=== PATIENT | female | born 1975 | race Caucasian/White ===

== ENCOUNTER 2016-04-12 08:25 | Inpatient (IN) | payer BC ==
[~2016-04-12] VITALS: Ht 149.9 cm; Wt 65.8 kg
[2016-05-04] VITALS (15 sets, daily range): BP systolic 91–119; BP diastolic 54–83; PULSE 76–101; RESP 12–20; TEMP 97.5–98.1; O2SAT 96–99
[2016-05-04] MEDS ORDERED: LACTATED RINGER'S 1000 ML IV ONE (06:15)
[2016-05-04] MEDS ORDERED: CITRIC ACID-SODIUM CITRATE LIQ 30 ML UDC PO SCH (06:15)
[2016-05-04] MEDS ORDERED: ceFAZolin 2 GM PREMIX 50 ML IV SCH (06:15)
[2016-05-04] MEDS ORDERED: PRENCAP10 PO (06:20)
[2016-05-04 06:45] LABS: AUTOMATED NEUTROPHIL # 5.5 TH/MM3 (1.8-7.7); BASOPHIL # 0.1 TH/MM3 (0-0.2); EOSINOPHIL # 0.2 TH/MM3 (0-0.4); EOSINOPHIL % 2.6 % (0.0-4.0); HEMATOCRIT 32.3 % (35.0-46.0); HEMO FLAGS DIFF FINAL; LYMPH % 18.9 % (9.0-44.0); LYMPHOCYTE # 1.5 TH/MM3 (1.0-4.8); MEAN CELL VOLUME 90.2 FL (80.0-100.0); MEAN CORPUSCULAR HEMOGLOBIN 29.8 PG (27.0-34.0); MEAN CORPUSCULAR HGB CONC 33.1 % (32.0-36.0); MONO % 7.6 % (0.0-8.0); NEUT % 69.9 % (16.0-70.0); PLATELET COUNT 158 TH/MM3 (150-450); RED BLOOD COUNT 3.58 MIL/MM3 (4.00-5.30); RED CELL DISTRIBUTION WIDTH 16.2 % (11.6-17.2); WHITE BLOOD COUNT 7.8 TH/MM3 (4.0-11.0)
[2016-05-04] MEDS: LACTATED RINGER'S 1000 ML IV SCH (07:14)
[2016-05-04] MEDS ORDERED: OXYTOCIN 10 UNIT/ML AMP ONE (07:16)
[2016-05-04] MEDS ORDERED: MORPHINE SULFATE PF 5 MG/10 ML VIAL ONE (07:16)
[2016-05-04] MEDS ORDERED: ONDANSETRON HCL 4 MG/2 ML VIAL ONE (07:16)
[2016-05-04 07:25] LABS: BACTERIA, URINE OCC /hpf; BLOOD, URINE NEG (NEG); GLUCOSE,URINE NEG (NEG); KETONE, URINE NEG (NEG); MUCUS URINE FEW /lpf (OCC); NITRITE,URINE NEG (NEG); SQUAMOUS EPITHELIAL CELL URINE 1 /hpf (0-5); URINE COLOR YELLOW (YELLW/STRAW)
[2016-05-04 07:26] LABS: COMMENT (UR) CULT NOT INDICATED; CULTURE IF INDICATED CULT NOT INDICATED
[2016-05-04] MEDS ORDERED: SODIUM CHLORIDE 0.9% FLUSH 5 ML FLUSH IV PRN (07:30)
[2016-05-04] MEDS ORDERED: MEASLES, MUMPS, RUBELLA VACCINE 0.5 ML VIAL SQ ONE (07:30)
[2016-05-04] MEDS ORDERED: KETOROLAC TROMETHAMINE 60 MG/2 ML (IM) VIAL IM PRN (07:30)
[2016-05-04] MEDS ORDERED: ZOLPIDEM TARTRATE 5 MG TAB PO PRN (07:30)
[2016-05-04] MEDS ORDERED: OXYTOCIN 30 UNITS-500ML PREMIX 500 ML IV ONE (07:30)
[2016-05-04] MEDS ORDERED: ONDANSETRON HCL 4 MG/2 ML VIAL IVP PRN (07:30)
[2016-05-04] MEDS ORDERED: DOCUSATE SODIUM 50 MG/SENNA 8.6 MG TAB PO PRN (07:30)
[2016-05-04] MEDS ORDERED: SIMETHICONE 80 MG CHEWABLE TAB PO PRN (07:30)
[2016-05-04] MEDS ORDERED: oxyCODONE/ACETAMINOPHEN 5 MG/325 MG TAB PO PRN ×2 (07:30)
[2016-05-04] MEDS ORDERED: ACETAMINOPHEN 1000 MG/100 ML VIAL IV ONE (07:56)
--- NOTE | 2016-05-04 08:47 | MH ---
cc: CURTIS LAZAR DATE OF ADMISSION: 05/04/2016 ADMISSION DIAGNOSES 1. Term . 2. Advanced maternal age. 3. Breech presentation. 4. Small planimetry with short stature and fibroids. HISTORY OF PRESENT ILLNESS A 40-year-old white female para 0 with an LMP of 08/04/2015, EDC of 05/10/2016. Her preop course has been benign. At term the baby was breech with small pelvis and she was admitted for primary . PAST MEDICAL HISTORY PREVIOUS SURGERY She had nose surgery at age 27. MEDICATIONS Vitamins. ALLERGIES None. TRANSFUSIONS None. SERIOUS MEDICAL ILLNESSES Had kidney stones in 2009, passed spontaneously. SOCIAL HISTORY She is , a teacher at [employer]. Alcohol, tobacco and drugs are none. FAMILY HISTORY Noncontributory. PHYSICAL EXAMINATION GENERAL: A well-nourished, well-developed white female. VITAL SIGNS: Stable. HEENT: Exam is normal. CHEST: Clear. HEART: Regular rate. BREASTS: Symmetrical. ABDOMEN: . EFW 3300 grams, breech presentation. Cervix is closed. Height is 4'11". ASSESSMENT As above. PLAN She is now admitted for primary . While in the office I explained the procedures, the risks, benefits and complications. The patient would like to proceed. MD TOO Richardson/SSB /6:45 AM /8:38 AM
[2016-05-04] MEDS ORDERED: LACTATED RINGER'S 1,000 ML BAG IV ONE (09:01)
[2016-05-04] MEDS ORDERED: ePHEDrine/NS 25 MG/5 ML SYR IV PUSH ONE (09:01)
[2016-05-04] MEDS ORDERED: LACTATED RINGER'S 1000 ML INJ 1,000 ML IV SCH (13:04)
[2016-05-04] MEDS: ACETAMINOPHEN 1000 MG/100 ML VIAL IV SCH ×3 (15:30→23:48)
[2016-05-04] MEDS ORDERED: OXYTOCIN 30 UNITS-500ML PREMIX 500 ML IV PRN (18:15)
[2016-05-04] MEDS: SODIUM CHLORIDE 0.9% FLUSH 5 ML FLUSH IV SCH (19:52)
[2016-05-04] MEDS: KETOROLAC TROMETHAMINE 30 MG/ML (IVP) VIAL IV PUSH PRN (21:30)
[2016-05-05] MEDS: LACTATED RINGER'S 1000 ML IV SCH ×2 (02:15→22:15)
[2016-05-05 03:50] VITALS: BP 105/64; PULSE 79; RESP 18; TEMP 97.9
[2016-05-05 07:44] VITALS: BP 111/69; PULSE 86; RESP 14; TEMP 98.2
--- NOTE | 2016-05-05 08:22 | MP ---
cc: CADYCURTIS DATE OF SURGERY 05/04/2016 PREOPERATIVE DIAGNOSIS 1. Term 2. Advanced maternal age 40 3. Breech presentation 4. Small pelvimetry POSTOPERATIVE DIAGNOSIS 1. Term 2. Advanced maternal age 40 3. Breech presentation 4. Small 5. Delivered PROCEDURE Primary low transverse section ANESTHESIA Spinal SURGEON Curtis Johnson MD [employer] Katie Branch ESTIMATED BLOOD LOSS For the procedure is about 600 cc FLUIDS Two liters crystalloid OBJECTIVE FINDINGS Following induction of adequate spinal anesthesia, the patient was prepped and draped supine on the operating table in the left lateral tilt position in the usual sterile fashion with the bladder being drained via Robles catheterization. The abdomen was opened through a Pfannenstiel incision using a knife to cut down from the skin to the fascia. The fascia opened transversely, stripped from the muscles. Rectus muscle split in the midline and the peritoneum opened sharply without incident. The bladder flap was taken down sharply and retracted inferiorly with a Glasco blade. The lower uterine segment was incised transversely with a knife and extended wit blunt dissection. Membranes ruptured revealing clear fluid. The baby was in the breech presentation, suyapa, left sacral transverse. With gentle guidance and fundal pressure, delivery progressed to the shoulder blades. Each arm was then reduced. The head delivered easily. The mouth was suctioned. The cord clamped and cut. The baby passed to the awaiting team, viable vigorous female 's were 8 and 9, weight 6 pounds 10 ounces female. Cord blood collected for typing. The placenta manually removed and the uterine cavity cleaned with laps. The uterus was exteriorized and closed with running suture, first with a running locking stitch of Vicryl, second with a running imbricating stitch of Vicryl. Posterior inspection of the uterus, tubes and ovaries normal. The uterus shows some fundal fibroid about 3 cm x2. Irrigation was performed. No bleeding was evident. Bladder flaps closed with a running stitch of 3-0 Vicryl. All laps and retractors removed. Counts were correct. The anterior peritoneum closed with a running stitch of 2-0 Vicryl. Fascia closed with a running locking stitch of 0 Vicryl corner to midline and tied, subcu with running 3-0 Vicryl and skin with running subcuticular 3-0 Monocryl. Dermabond applied. All counts correct and the patient was awakened and taken to the room in good position. MD TOO Richardson/OLEGARIO /8:18 AM /8:10 AM LYNDON
[2016-05-05] MEDS: SODIUM CHLORIDE 0.9% FLUSH 5 ML FLUSH IV SCH (09:00)
[2016-05-05] MEDS: KETOROLAC TROMETHAMINE 30 MG/ML (IVP) VIAL IV PUSH PRN (09:04)
[2016-05-05 10:00] LABS: AUTOMATED NEUTROPHIL # 9.7 TH/MM3 (1.8-7.7); BASOPHIL % 0.4 % (0.0-2.0); EOSINOPHIL % 0.2 % (0.0-4.0); HEMATOCRIT 24.5 % (35.0-46.0); HEMO FLAGS DIFF FINAL; LYMPHOCYTE # 1.4 TH/MM3 (1.0-4.8); MEAN CELL VOLUME 89.9 FL (80.0-100.0); MEAN CORPUSCULAR HEMOGLOBIN 29.8 PG (27.0-34.0); MEAN CORPUSCULAR HGB CONC 33.2 % (32.0-36.0); MONO % 4.5 % (0.0-8.0); NEUT % 82.9 % (16.0-70.0); PLATELET COUNT 140 TH/MM3 (150-450); RED BLOOD COUNT 2.73 MIL/MM3 (4.00-5.30); RED CELL DISTRIBUTION WIDTH 15.9 % (11.6-17.2); WHITE BLOOD COUNT 11.7 TH/MM3 (4.0-11.0)
[2016-05-05 10:29] LABS: BICARBONATE 24.7 MEQ/L (21.0-32.0); POTASSIUM 3.5 MEQ/L (3.5-5.1)
[2016-05-05] MEDS: IBUPROFEN 600 MG TAB PO PRN ×2 (15:22→22:03)
[2016-05-05 22:06] VITALS: BP 111/74; PULSE 93; RESP 18; TEMP 97.4
[2016-05-05] MEDS: ACETAMINOPHEN 325 MG TAB PO PRN (23:51)
[2016-05-06] MEDS: SODIUM CHLORIDE 0.9% FLUSH 5 ML FLUSH IV SCH (02:50)
[2016-05-06] MEDS: ACETAMINOPHEN 325 MG TAB PO PRN ×2 (03:54→10:25)
[2016-05-06] MEDS: IBUPROFEN 600 MG TAB PO PRN ×2 (03:54→10:25)
[2016-05-06] MEDS ORDERED: OXYC1TAB63 PO (06:50)
--- NOTE | 2016-05-06 06:50 | HHI.DCPOC ---
Discharge Care Plan Report Symptoms to Your Doctor -Temperate above 100.5 degrees -Redness, of incision or excessive or foul smelling drainage -Unusual pain or calf pain -Increased vaginal bleeding -Painful or difficulty urinating -Feelings of extreme sadness or anxiety after 2 weeks Goals to Promote Your Health * To prevent worsening of your condition and complications * To maintain your health at the optimal level Directions to Meet Your Goals Take your medications as prescribed Follow your dietary instruction Follow activity as directed Ensure plenty of rest for recovery Drink fluids for hydration Keep your appointments as scheduled Take your immunizations and boosters as scheduled If your symptoms worsen call your PCP, if no PCP go to Urgent Care Center or Emergency Room Smoking is Dangerous to Your Health. Avoid second hand smoke Call the 24-hour crisis hotline for domestic abuse at Luis Alfredo Johnson MD May 06, 2016 06:50
[2016-05-06 08:11] VITALS: BP 118/79; PULSE 80; RESP 20; TEMP 98.8
[2016-05-06] MEDS ORDERED: DIPHTH/TETANUS/ACEL PERTUSSIS (BOOSTER) 0.5 ML VIAL/PFS IM ONE (09:00)
--- NOTE | 2016-05-12 08:23 | MD ---
cc: CURTIS LAZAR M.D. ADMISSION DATE: 05/04/2016 DISCHARGE DATE: 05/06/2016 ADMISSION DIAGNOSES 1. Term . 2. Advanced maternal age of 40. 3. Breech presentation. 4. Small pelvimetry. DISCHARGE DIAGNOSES 1. Term . 2. Advanced maternal age of 40. 3. Breech presentation. 4. Small pelvimetry. 5. Delivered. HISTORY OF PRESENT ILLNESS The patient is a 40-year-old white female, para 0, with an LMP of 08/04/2015, EDC of 05/10/2016. Her course was benign. Her labs included - Rh-positive, VDRL nonreactive, rubella immune, rubeola immune, HAA negative, Pap negative. Glucose screen was normal. A Strep culture was negative. She has short stature at 4 feet, 11 inches, small pelvimetry. HOSPITAL COURSE The baby was breech at term and she was admitted for a primary on 05/04/2016, had delivery of a viable, vigorous female. Apgars were 8 and 9, weight 6 pounds, 10 ounces. Postop did well with gradual advancement of diet and activity, discharged home in excellent condition on 05/06/2016. She was advised NPV, light activity, no driving. To return to see me in one week. She is to call for abnormal pain, bleeding, temperature, signs of infection or depression. DISCHARGE MEDICATIONS She was given prescriptions for Percocet 5, 1-2 p.o. q.4 hours p.r.n. pain, #60. Curtis Lazar MD JAW/SSB /6:54 AM /8:08 AM
== END 2016-05-06 11:28 | disposition home or self-care (01) | DRG 766 ==
LOC: H2EB 05-04 06:00 → H1EA 05-04 09:55
PROVIDERS: ADMIT Obstetrics & Gynecology; ATTEND Obstetrics & Gynecology
PROC: 10D00Z1 Extraction of Products of Conception, Low, Open Approach (ICD-10-PCS; principal; 2016-05-04)
DX: O32.1XX0 Maternal care for breech presentation, not applicable or unspecified (principal); O34.13 Maternal care for benign tumor of corpus uteri, third trimester; D25.9 Leiomyoma of uterus, unspecified; O09.513 Supervision of elderly primigravida, third trimester; Z3A.39 39 weeks gestation of pregnancy; Z37.0 Single live birth
CPT/HCPCS: 80048; 81001; 85025; 86850; 86900; 86901; 90715; J0131; J0690; J1885; J2274; J2405; J2590; J7120